=== PATIENT | male | born 1970 | race American Indian/Alaskan Native ===

== ENCOUNTER 2022-09-02 08:43 | Emergency (ER) | payer MEDICAID, OTHER ==
[2022-09-02 08:46] VITALS: BP 134/70; PULSE 98
[2022-09-02] MEDS ORDERED: Sodium Chloride 0.9% 10 ML Syringe FLUSH PRN (08:46)
[2022-09-02] MEDS ORDERED: Dextrose 5%-Lact Ringers w/KCl 1,000 ML IV SCH (09:00)
[2022-09-02] MEDS ORDERED: Potassium Chloride 20 MEQ Tab.ER PO ONE (10:04)
== END 2022-09-02 11:42 | disposition home or self-care (01) ==
LOC: JP.ED 08:43
DX: R56.9 Unspecified convulsions (principal); E11.649 Type 2 diabetes mellitus with hypoglycemia without coma; E87.6 Hypokalemia; D64.9 Anemia, unspecified
CPT/HCPCS: 36415; 80048; 80307; 82947; 85025; 96365; 99284; J3480; J3490

== ENCOUNTER 2022-11-03 11:17 | Emergency (ER) | payer MEDICAID ==
[2022-11-03 11:32] VITALS: BP 126/79; PULSE 111
[2022-11-03] MEDS ORDERED: Lidocaine 1% with EPINEPHrine 1:100,000 50 ML MDV SUBCUT STA (11:51)
[2022-11-03] MEDS ORDERED: Bacitracin Oint 1 GM U/D Packet TOP ONE (11:51)
== END 2022-11-03 13:00 | disposition home or self-care (01) ==
LOC: JP.ED 11:17
DX: S01.111A Laceration without foreign body of right eyelid and periocular area, initial encounter (principal); E11.9 Type 2 diabetes mellitus without complications; F17.210 Nicotine dependence, cigarettes, uncomplicated; W19.XXXA Unspecified fall, initial encounter
CPT/HCPCS: 12011; 99283